=== PATIENT | female | born 1970 | race African-American/Black ===

== ENCOUNTER 2021-02-12 07:53 | Emergency (ER) | payer OTHER, SELFPAY ==
--- NOTE | ~2021-02-12 | XR_ITS ---
EXAMINATION: LEFT ANKLE, LEFT HAND, CHEST AND LEFT RIBS. CLINICAL INFORMATION: Fell down stairs. Pain COMPARISON: None TECHNIQUE: 3 views left ankle, 3 views left hand, chest and left RIBS. FINDINGS: CHEST AND LEFT RIBS: The lungs are well-expanded and clear of acute process. The heart size and pulmonary vascularity is normal. Multiple views of left ribs reveal no visible fracture or bony abnormality. The soft tissues are normal. LEFT HAND: Multiple views of left hand reveals no visible acute fracture, dislocation or subluxation. No lytic process. Left ankle: There is no visible acute fracture, dislocation or subluxation seen. The ankle mortise and slight subtalar joints are normal. There is a small calcaneal heel spur. XR/XR hand LT 2V IMPRESSION: Unremarkable chest and left rib exam. Unremarkable left hand exam. Unremarkable left ankle exam.
--- NOTE | ~2021-02-12 | XR_ITS ---
EXAMINATION: LEFT ANKLE, LEFT HAND, CHEST AND LEFT RIBS. CLINICAL INFORMATION: Fell down stairs. Pain COMPARISON: None TECHNIQUE: 3 views left ankle, 3 views left hand, chest and left RIBS. FINDINGS: CHEST AND LEFT RIBS: The lungs are well-expanded and clear of acute process. The heart size and pulmonary vascularity is normal. Multiple views of left ribs reveal no visible fracture or bony abnormality. The soft tissues are normal. LEFT HAND: Multiple views of left hand reveals no visible acute fracture, dislocation or subluxation. No lytic process. Left ankle: There is no visible acute fracture, dislocation or subluxation seen. The ankle mortise and slight subtalar joints are normal. There is a small calcaneal heel spur. XR/XR ankle LT 2V IMPRESSION: Unremarkable chest and left rib exam. Unremarkable left hand exam. Unremarkable left ankle exam.
--- NOTE | ~2021-02-12 | XR_ITS ---
EXAMINATION: LEFT ANKLE, LEFT HAND, CHEST AND LEFT RIBS. CLINICAL INFORMATION: Fell down stairs. Pain COMPARISON: None TECHNIQUE: 3 views left ankle, 3 views left hand, chest and left RIBS. FINDINGS: CHEST AND LEFT RIBS: The lungs are well-expanded and clear of acute process. The heart size and pulmonary vascularity is normal. Multiple views of left ribs reveal no visible fracture or bony abnormality. The soft tissues are normal. LEFT HAND: Multiple views of left hand reveals no visible acute fracture, dislocation or subluxation. No lytic process. Left ankle: There is no visible acute fracture, dislocation or subluxation seen. The ankle mortise and slight subtalar joints are normal. There is a small calcaneal heel spur. XR/XR ribs LT min 3V w CXR1V IMPRESSION: Unremarkable chest and left rib exam. Unremarkable left hand exam. Unremarkable left ankle exam.
[2021-02-12 08:17] VITALS: BP 120/84; PULSE 76; RESP 16; TEMP 36.3; O2SAT 97; BMI 32.2
--- NOTE | 2021-02-12 09:07 | ED.FALL ---
HPI - Fall General Chief Complaint: Fall Stated Complaint: work injury (fell; left side hurt) Time Seen by Provider: 02/12/21 08:53 Source: patient Mode of arrival: ambulatory Limitations: no limitations History of Present Illness HPI Narrative: Patient comes to the emergency room complaining a fall. Patient states she was coming out of work, walking towards her car, patient was walking down the stairs and slipped on the left side. Patient states that she is complaining of left-sided hand pain, left rib pain and left ankle pain. Patient was able to get up and start walking towards her car and came to the emergency room. Patient did not hit her head, did not lose consciousness, she is not on any blood thinners. Related Data Allergies Allergy/AdvReac Type Severity Reaction Status Date / Time No Known Allergies Allergy Verified 02/12/21 08:54 Review of Systems Review of Systems: Constitutional : No Weight loss, No Fever, No Chills, No Night Sweats, No Fatigue, No Malaise ENT/Mouth : No Hearing loss, No Ear Pain, No Nasal Congestion, No Sinus Pain, No Hoarseness, No sore throat, No Rhinorrhea, No Swallowing Difficulty Eyes: No Eye Pain, No Swelling, No Redness, No Foreign Body, No Discharge, No Vision Changes Cardiovascular : No Chest Pain, No SOB, No Dyspnea on Exertion, No Orthopnea, No Edema, No Palpitations Respiratory : No Cough, No Sputum, No Wheezing, No Smoke Exposure, No Dyspnea Gastrointestinal : No Nausea, No Vomiting, No Diarrhea, No Constipation, No abdominal Pain, No Hematochezia, No Melena Genitourinary : no irregular bleeding, No Dysuria, No Urinary Frequency, No Hematuria, No Urinary Incontinence, No Urgency, No Flank Pain, No Urinary Flow Changes, No Hesitancy Musculoskeletal : Complaining of left-sided hand pain, left-sided lateral rib pain and left ankle pain Skin : No Skin Lesions, No rash Neuro : No Weakness, No Numbness, No Paresthesias, No Loss of Consciousness, No Dizziness, No Headache Psych : No Anxiety/Panic, No Depression, No SI/HI/AH/VH, No Social Issues, Heme/Lymph: No Bruising, No Bleeding,No Lymphadenopathy Endocrine : No Polyuria, No Polydipsia, No Temperature Intolerance PMFSH Past Medical History Medical History No known health problems Social History Social History Advance Directives: No Advance Directives Information Provided: No Physical Exam Vital Signs: Vital Signs: Last Vital Signs Temp 97.4 F 02/12/21 08:17 Pulse 76 02/12/21 08:17 Resp 16 02/12/21 08:17 BP 120/84 02/12/21 08:17 Pulse Ox 97 02/12/21 08:17 BMI result Body Mass Index 32.2 Const: Other: Appearance: Alert. Oriented X3. No acute distress. Eyes: Pupils equal, round and reactive to light. ENT: Pharynx normal. Neck: Normal inspection. Neck supple. No lymph nodes noted. No crepitus CVS: Normal heart rate and rhythm. Pulses normal. Normal S1 and S2 Respiratory: No respiratory distress. Breath sounds normal. No Wheezing. No rales Abdomen: Soft and nontender. No rigidity. No distention. good BS x4 Skin: Skin warm and dry. Normal skin color. Normal skin turgor. Extremities: No lower extremity edema. Pain to palpation on the lateral malleolus, patient is able to bear weight. Mild pain to palpation on the left hand dorsal aspect, no deformity, no swelling. Also pain to palpation over the lateral aspect of the left ribs, no swelling, no ecchymosis Neuro: Oriented X 3. No motor deficit. No sensory deficit. Moving all extermities. No slurred speech. Course Course Course Narrative: I discussed the x-ray imaging with the patient, no acute findings, no fractures. On contusions. Patient was given 1 dose of Tylenol in the emergency room. Patient states that she has Tylenol and ibuprofen at home. MDM - Fall Imaging Data Ribs, hand, ankle x-ray: Radiologist's impression: FINDINGS: CHEST AND LEFT RIBS: The lungs are well-expanded and clear of acute process. The heart size and pulmonary vascularity is normal. Multiple views of left ribs reveal no visible fracture or bony abnormality. The soft tissues are normal. LEFT HAND: Multiple views of left hand reveals no visible acute fracture, dislocation or subluxation. No lytic process. Left ankle: There is no visible acute fracture, dislocation or subluxation seen. The ankle mortise and slight subtalar joints are normal. There is a small calcaneal heel spur. XR/XR ribs LT min 3V w CXR1V IMPRESSION: Unremarkable chest and left rib exam. ? Unremarkable left hand exam. ? Unremarkable left ankle exam.? Discharge Plan Discharge Clinical Impression: Contusion Patient Disposition: Home, Self-Care Instructions: Contusion in Adults (ED) Additional Instructions: Please follow-up with your primary care physician tomorrow. You may use Tylenol and alternate with ibuprofen in case of pain. If you have any worsening or new symptoms, please return to the emergency room or call 911 Stand Alone Forms: Work/School Release
[2021-02-12] MEDS: Acetaminophen 325 MG TABLET 650 MG PO (09:20)
== END 2021-02-12 10:10 | disposition home or self-care (01) ==
PROVIDERS: Emergency Provider Emergency Medicine
DX: T14.8XXA Other injury of unspecified body region, initial encounter (principal); M79.642 Pain in left hand; R07.81 Pleurodynia; M25.572 Pain in left ankle and joints of left foot; W01.0XXA Fall on same level from slipping, tripping and stumbling without subsequent striking against object, initial encounter; Y93.9 Activity, unspecified; Y92.89 Other specified places as the place of occurrence of the external cause; Y99.9 Unspecified external cause status
CPT/HCPCS: 71101; 73120; 73600; 99284

== ENCOUNTER 2022-09-08 10:07 | Emergency (ER) | payer OTHER, SELFPAY ==
[2022-09-08 10:35] VITALS: BP 146/92; PULSE 72; RESP 16; TEMP 36.1; O2SAT 99; BMI 33.7
[2022-09-08 13:49] VITALS: BP 120/74; PULSE 67; RESP 17; O2SAT 98
[2022-09-08 14:41] LABS: Basophils Absolute Auto 0.1 X10*3/uL (0.0-0.2); Basophils Percent Auto 0.7 % (0-2); Eosinophils Absolute Auto 0.4 X10*3/uL (0.0-0.4); Eosinophils Percent Auto 5.5 % (0-4); Hemoglobin 13.4 g/dl (12.0-16.0); Imm Gran Abs Auto 0.02 X10*3/uL (0.00-0.03); Imm Gran Pct Auto 0.3 % (0.0-0.4); Lymphocytes Absolute Auto 2.5 X10*3/uL (1.2-4.9); Lymphocytes Percent Auto 33.2 % (20-40); MANUAL DIFF FLAG NO; Mean Corpuscular HGB Conc 31.9 g/dl (31.0-35.0); Mean Corpuscular Hemoglobin 27.3 pg (27.0-33.0); Mean Corpuscular Volume 85.7 fL (80.0-98.0); Mean Platelet Volume 10.5 fL (9.4-12.3); Monocytes Absolute Auto 0.7 X10*3/uL (0.1-1.2); Monocytes Percent Auto 8.9 % (2-11); Neutrophils Absolute Auto 3.9 x10*3/uL (2.0-8.3); Neutrophils Percent Auto 51.4 % (45-73); Platelet Count 267 X10*3/uL (160-400); Red Cell Distribution Width 13.9 % (11.0-16.0); White Blood Count 7.5 X10*3/uL (4.8-10.8)
--- NOTE | 2022-09-08 14:43 | ED_ITS ---
HPI - General Adult General Chief complaint: General Medical Stated complaint: Works comp/ picked by needle from client Time Seen by Provider: 09/08/22 12:32 Source: patient and RN notes reviewed Mode of arrival: ambulatory Limitations: no limitations History of Present Illness HPI narrative: This is a 52-year-old female presenting to the emergency department for evaluation of needle stick at work. Patient reports that this morning she was accidentally stuck by a dirty needle on her right 2nd finger. She states that the needle was a old diabetic medication needle that was in a box with other used diabetic medications. Patient reports that her right 2nd finger bled, and she rinsed off her finger immediately. Patient is unsure what the patient's HIV or hepatitis status is. No other complaints or concerns at this time MD complaint: Needle exposure Onset (ago): hour(s) Location: upper extremity Radiation: non-radiation Severity: mild Relieving factors: none Exacerbating factors: none Associated symptoms: denies other symptoms Treatments prior to arrival: none Related Data Previous Rx's Medication Instructions Recorded emtricitabine 200 mg-tenofovir 1 tab PO DAILY #30 tabs 09/08/22 disoproxil fumarate 300 mg tablet raltegravir 400 mg tablet 400 mg PO BID #60 tabs 09/08/22 (Isentress) Allergies Allergy/AdvReac Type Severity Reaction Status Date / Time No Known Allergies Allergy Verified 02/12/21 08:54 Review of Systems Review of Systems: Yes all other systems are reviewed and are negative [facility] Past Medical History Medical History No known health problems Social History Social History Advance Directives: No Advance Directives Information Provided: No Physical Exam ED Vital Signs: Vital Signs - 24 hr 09/08/22 10:35 09/08/22 13:49 Temperature 97 F Pulse Rate 72 67 Respiratory Rate 16 17 Blood Pressure 146/92 H 120/74 Pulse Oximetry 99 98 Oxygen Delivery Method Room Air Room Air BMI result Body Mass Index 33.7 Const Other: General: Awake, alert, and oriented X3. No acute distress. HEENT: Normal inspection CVS: Normal heart rate and rhythm. Pulses normal. Respiratory: No respiratory distress Skin: Puncture wound noted to the right palmar surface of the 2nd finger, DIP. No active bleeding or drainage. No surrounding erythema or edema. Warm, dry, no rashes noted to exposed skin. Normal skin color. Normal skin turgor. Extremities: Normal to inspection Neuro: Oriented X 3. No motor deficit. No sensory deficit. Medical Decision Making Medical Decision Making MDM Narrative: 52-year-old female presenting to the emergency department for evaluation of needle exposure while at work today. Patient is unsure HIV or hepatitis status of this patient. Performed risk stratification with patient at bedside, patient has a 0.001% chance of evin blood borne illness. I discussed that patient's likelihood of transmission is extremely low however is not 0. Patient is unsure whether not she wants to go forth and treat with antivirals, patient given post exposure prophylaxis dose pack and prescribed 30 days supply of antivirals, given referral to infectious disease specialist and advised to follow-up with primary care physician regarding this visit. Patient understands and agrees with plan. Differential Diagnosis Differential Diagnoses: The differential diagnosis associated with the presentation includes HIV exposure, puncture wound, laceration, abrasion, cellulitis Lab Data 09/08/22 14:35 09/08/22 14:35 Labs: Lab Results 09/08/22 09/08/22 09/08/22 Range/Units 14:35 14:35 14:35 WBC 7.5 (4.8-10.8) X10*3/uL RBC 4.90 (4.20-5.50) X10*6/uL Hgb 13.4 (12.0-16.0) g/dl Hct 42.0 (37.0-47.0) % MCV 85.7 (80.0-98.0) fL MCH 27.3 (27.0-33.0) pg MCHC 31.9 (31.0-35.0) g/dl RDW 13.9 (11.0-16.0) % Plt Count 267 (160-400) X10*3/uL MPV 10.5 (9.4-12.3) fL Immature Gran % (Auto) 0.3 (0.0-0.4) % Neut % (Auto) 51.4 (45-73) % Lymph % (Auto) 33.2 (20-40) % Phillips % (Auto) 8.9 (2-11) % Eos % (Auto) 5.5 H (0-4) % Baso % (Auto) 0.7 (0-2) % Lymph # (Auto) 2.5 (1.2-4.9) X10*3/uL Phillips # (Auto) 0.7 (0.1-1.2) X10*3/uL Eos # (Auto) 0.4 (0.0-0.4) X10*3/uL Baso # (Auto) 0.1 (0.0-0.2) X10*3/uL Abs Immat Gran (auto) 0.02 (0.00-0.03) X10*3/uL Absolute Neuts (auto) 3.9 (2.0-8.3) x10*3/uL Absolute Nucleated RBC 0.000 (0.0-0.012) X10*3/uL Nucleated RBC % (auto) 0.0 (0.0-0.2) /100WBC Sodium 143 (135-145) mmol/L Potassium 3.9 (3.3-5.1) mmol/L Chloride 107 (96-108) mmol/L Carbon Dioxide 28 (22-29) mmol/L Anion Gap 12 (12-20) BUN 11 (9-16) mg/dL Creatinine 0.79 (0.5-1.4) mg/dL Estim Creat Clear Calc 102.2 Estimated GFR > 60 Random Glucose 96 (60-115) mg/dL Calcium 9.6 (8.4-10.2) mg/dL Total Bilirubin 0.5 (0.0-1.0) mg/dL Direct Bilirubin 0.2 (0.0-0.5) mg/dL AST 22 (5-31) U/L ALT 14 (0-31) U/L Alkaline Phosphatase 97 (39-117) U/L Total Protein 7.5 (6.5-8.0) g/dL Albumin 4.2 (3.5-5.0) g/dL Amylase 65 (28-100) U/L Lipase 18 (8-78) U/L Urine Color Urine Appearance Urine pH (5.0-9.0) Ur Specific [place] (1.005-1.025) Urine Protein (Neg-Trace) mg/dL Urine Glucose (UA) (Negative) mg/dL Urine Ketones (Negative) mg/dL Urine Blood (Negative) Urine Nitrite (Negative) Ur Leukocyte Esterase (Negative) Urine Test (NEGATIVE) Ethyl Alcohol < 10 mg/dL Hep Bs Antigen Negative (Negative) Hep Bs Antibody REACTIVE (Nonreactive) Hep B Core Total Ab Nonreactive (Nonreactive) Hepatitis C Ab (EIA) Nonreactive (Nonreactive) HIV 1&2 Ab/P24 Ag 4thGn Nonreactive (Nonreactive) 09/08/22 09/08/22 Range/Units 14:44 14:44 WBC (4.8-10.8) X10*3/uL RBC (4.20-5.50) X10*6/uL Hgb (12.0-16.0) g/dl Hct (37.0-47.0) % MCV (80.0-98.0) fL MCH (27.0-33.0) pg MCHC (31.0-35.0) g/dl RDW (11.0-16.0) % Plt Count (160-400) X10*3/uL MPV (9.4-12.3) fL Immature Gran % (Auto) (0.0-0.4) % Neut % (Auto) (45-73) % Lymph % (Auto) (20-40) % Phillips % (Auto) (2-11) % Eos % (Auto) (0-4) % Baso % (Auto) (0-2) % Lymph # (Auto) (1.2-4.9) X10*3/uL Phillips # (Auto) (0.1-1.2) X10*3/uL Eos # (Auto) (0.0-0.4) X10*3/uL Baso # (Auto) (0.0-0.2) X10*3/uL Abs Immat Gran (auto) (0.00-0.03) X10*3/uL Absolute Neuts (auto) (2.0-8.3) x10*3/uL Absolute Nucleated RBC (0.0-0.012) X10*3/uL Nucleated RBC % (auto) (0.0-0.2) /100WBC Sodium (135-145) mmol/L Potassium (3.3-5.1) mmol/L Chloride (96-108) mmol/L Carbon Dioxide (22-29) mmol/L Anion Gap (12-20) BUN (9-16) mg/dL Creatinine (0.5-1.4) mg/dL Estim Creat Clear Calc Estimated GFR Random Glucose (60-115) mg/dL Calcium (8.4-10.2) mg/dL Total Bilirubin (0.0-1.0) mg/dL Direct Bilirubin (0.0-0.5) mg/dL AST (5-31) U/L ALT (0-31) U/L Alkaline Phosphatase (39-117) U/L Total Protein (6.5-8.0) g/dL Albumin (3.5-5.0) g/dL Amylase (28-100) U/L Lipase (8-78) U/L Urine Color Yellow Urine Appearance Clear Urine pH 7.5 (5.0-9.0) Ur Specific [place] 1.010 (1.005-1.025) Urine Protein Negative (Neg-Trace) mg/dL Urine Glucose (UA) Negative (Negative) mg/dL Urine Ketones Negative (Negative) mg/dL Urine Blood Negative (Negative) Urine Nitrite Negative (Negative) Ur Leukocyte Esterase Negative (Negative) Urine Test NEGATIVE (NEGATIVE) Ethyl Alcohol mg/dL Hep Bs Antigen (Negative) Hep Bs Antibody (Nonreactive) Hep B Core Total Ab (Nonreactive) Hepatitis C Ab (EIA) (Nonreactive) HIV 1&2 Ab/P24 Ag 4thGn (Nonreactive) Discharge Plan Discharge Clinical Impression: Accidental needlestick injury with exposure to body fluid Patient Disposition: Home, Self-Care Instructions: Needle Stick Injuries (ED) Additional Instructions: We performed basic blood work on you today. Take prescribed medication as directed. Your risk is low however not 0 for transmission of blood borne illnesses. Please follow-up with your workmen's comp. Any new or worsening symptoms occur please return for re-evaluation. Follow-up with your primary care physician or Infectious Disease specialist. Call to make an appointment Prescriptions: New emtricitabine-tenofovir (TDF) 200-300 mg tablet 1 tab PO DAILY Qty: 30 0RF Isentress 400 mg tablet 400 mg PO BID Qty: 60 0RF [place] [facility] [place] Interventions: ED Discharge Assessment Last Done: 09/08/22 15:45 Discharge Date/Time: 09/08/22 15:45
== END 2022-09-08 15:45 | disposition home or self-care (01) ==
PROVIDERS: Physician Assistant Medical; Emergency Provider Emergency Medicine; PCP Internal Medicine
DX: S61.230A Puncture wound without foreign body of right index finger without damage to nail, initial encounter (principal); Y28.9XXA Contact with unspecified sharp object, undetermined intent, initial encounter; Y93.9 Activity, unspecified; Y92.9 Unspecified place or not applicable; Y99.0 Civilian activity done for income or pay; Z20.828 Contact with and (suspected) exposure to other viral communicable diseases; Z79.899 Other long term (current) drug therapy
CPT/HCPCS: 36415; 80048; 80076; 80307; 81003; 81025; 82150; 83690; 85025; 86704; 86706; 86803; 87340; 87389; 99283